=== PATIENT | female | born 1995 | race Caucasian/White ===

== ENCOUNTER 2018-09-18 05:49 | Emergency (ER) | payer SELFPAY ==
[~2018-09-18] VITALS: Ht 162.6 cm; Wt 47.6 kg
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
[2018-09-18] MEDS ORDERED: IBUP-1060 PO (06:34)
[2018-09-18] MEDS ORDERED: HYDR-971 PO (06:34)
[2018-09-18] MEDS ORDERED: IBUPROFEN 400 MG TABLET. PO ONE (06:45)
[2018-09-18 07:14] VITALS: BP 122/81
--- NOTE | 2018-09-18 07:43 | RAD ---
Bilateral feet, 6 views, 09/18/2018: HISTORY: Fall, pain No fracture or dislocation is identified. There is mild subcutaneous edema. IMPRESSION: No acute bony abnormality is detected. Electronically signed by: Ian Dickerson MD (09/18/2018 7:40 AM) [facility]
== END 2018-09-18 07:39 | disposition home or self-care (01) ==
LOC: ER 05:49
DX: M79.671 Pain in right foot (principal); M79.672 Pain in left foot; F31.9 Bipolar disorder, unspecified; F41.9 Anxiety disorder, unspecified; Z90.89 Acquired absence of other organs
CPT/HCPCS: 73630; 99284